=== PATIENT | male | born 1950 | race Hispanic/Latino ===

== ENCOUNTER 2021-07-30 11:33 | Inpatient (IN) | payer OTHER, MEDICARE ==
[2021-07-25 11:25] LABS: BASOPHILS % (AUTO) 0.6 % (0.0-5.0); EOSINOPHILS % (AUTO) 3.5 % (0.0-8.0); HEMATOCRIT 38.2 % (42-54); LYMPHOCYTES % (AUTO) 31.5 % (21.0-51.0); MEAN CORPUSCULAR HEMOGLOBIN 30.9 pg (27.0-33.0); MEAN CORPUSCULAR HGB CONC 32.7 g/dL (32.0-36.0); MEAN CORPUSCULAR VOLUME 94.6 fL (79-99); MONOCYTES % (AUTO) 8.7 % (3.0-13.0); NEUTROPHILS % (AUTO) 55.4 % (40.0-77.0); PLATELET COUNT (AUTO) 141 K/uL (130-400); RED BLOOD CELL COUNT(AUTO) 4.04 MIL/uL (4.50-6.20); RED CELL DISTRIBUTION WIDTH 12.7 % (11.0-15.5); WHITE BLOOD COUNT (AUTO) 6.9 K/uL (4.8-10.8)
[2021-07-25 11:36] LABS: INR 0.98 (0.85-1.15); PROTHROMBIN TIME 10.7 SEC (9.6-11.6)
[2021-07-25 11:37] LABS: PARTIAL THROMBOPLASTIN TIME 27.3 SEC (26.3-35.5)
[2021-07-25 11:44] LABS: CREATININE 6.3 mg/dL (0.5-1.5); POTASSIUM 4.4 mmol/L (3.5-5.1)
[2021-07-25 11:51] LABS: APPEARANCE,URINE Clear (CLEAR); BILIRUBIN,URINE Negative (NEGATIVE); COLOR,URINE Yellow (YELLOW); GLUCOSE, URINE (UA) >=1000 mg/dL (NEGATIVE); KETONES,URINE Trace mg/dL (NEGATIVE); LEUKOCYTE ESTERASE ,URINE Negative (NEGATIVE); NITRATE,URINE Negative (NEGATIVE); OCCULT BLOOD,URINE Small (NEGATIVE); PROTEIN,URINE POS 2+ mg/dL (NEGATIVE); UROBILINOGEN,URINE 0.2 mg/dL (0.2-1.0)
[2021-07-25 11:58] LABS: BACTERIA,URINE Rare /HPF (None Seen); RBC,URINE 0-1 /HPF (0-1); SQUAMOUS EPITHELIAL CELL,UR Rare /HPF (0-2); WBC,URINE 0-1 /HPF (0-1)
[2021-07-29 09:05] VITALS: BP 153/65
[~2021-07-30] VITALS: Ht 175.3 cm; Wt 88.0 kg
[2021-07-30] VITALS (30 sets, daily range): BP systolic 107–156; BP diastolic 54–78
[~2021-07-30 11:33] MED LIST: 0.9%NACL 1000ML 1,000 ML IV SCH; ATOR10 PO; CARV3.1262 PO; CILO100T PO; CLOP75TA14 PO; DOCU100C33 PO; FURO80TA3 PO; GABA-529 PO; INSU100I15 SQ; INSU100I24 SQ; PANT40TA54 PO; SEVE800T27 PO
[2021-07-30 12:13] LABS: CREATININE 4.8 mg/dL (0.5-1.5); POTASSIUM 4.7 mmol/L (3.5-5.1)
[2021-07-30 12:36] LABS: BASOPHILS % (AUTO) 0.2 % (0.0-5.0); EOSINOPHILS % (AUTO) 2.4 % (0.0-8.0); HEMATOCRIT 40.9 % (42-54); LYMPHOCYTES % (AUTO) 28.7 % (21.0-51.0); MEAN CORPUSCULAR HEMOGLOBIN 30.7 pg (27.0-33.0); MEAN CORPUSCULAR HGB CONC 32.3 g/dL (32.0-36.0); MEAN CORPUSCULAR VOLUME 95.1 fL (79-99); MONOCYTES % (AUTO) 8.8 % (3.0-13.0); NEUTROPHILS % (AUTO) 59.6 % (40.0-77.0); PLATELET COUNT (AUTO) 146 K/uL (130-400); RED CELL DISTRIBUTION WIDTH 12.7 % (11.0-15.5)
[2021-07-30] MEDS ORDERED: CILO50TA PO (12:54)
[2021-07-30] MEDS ORDERED: PROPOFOL 1000 MG/100 ML 100 ML IV ONE (15:01)
[2021-07-30] MEDS ORDERED: KETAMINE 50MG/ML SYRINGE 50 MG/ML DISP.SYRIN IV ONE (15:01)
[2021-07-30] MEDS ORDERED: MIDAZOLAM HCL 1 MG/ML 2ML VIAL ONE (15:02)
[2021-07-30] MEDS ORDERED: PHENYLEPHRINE HCL 10 MG/ML 1ML VIAL IV ONE (15:02)
[2021-07-30] MEDS ORDERED: FENTANYL CITRATE PF 50 MCG/1 ML 2ML VIAL ONE ×2 (15:03→16:30)
[2021-07-30] MEDS ORDERED: FAMOTIDINE 20MG VIAL IV ONE (15:07)
[2021-07-30] MEDS ORDERED: LIDOCAINE HCL 400MG/20ML VIAL ONE (15:10)
[2021-07-30] MEDS ORDERED: HEPARIN 10,000 UNIT/10ML (1,000 UNIT/ML) VIAL ONE (15:10)
[2021-07-30] MEDS ORDERED: IODIXANOL 320 MG/ML 100 ML VIAL ONE (15:10)
[2021-07-30] MEDS ORDERED: NITROGLYCERIN 50MG VIAL ONE (15:10)
[2021-07-31] VITALS (19 sets, daily range): BP systolic 110–158; BP diastolic 55–85
[2021-07-31 09:06] LABS: MEAN CORPUSCULAR HEMOGLOBIN 30.6 pg (27.0-33.0); MEAN CORPUSCULAR HGB CONC 32.1 g/dL (32.0-36.0); MEAN CORPUSCULAR VOLUME 95.6 fL (79-99); PLATELET COUNT (AUTO) 129 K/uL (130-400); RED BLOOD CELL COUNT(AUTO) 4.08 MIL/uL (4.50-6.20); RED CELL DISTRIBUTION WIDTH 12.7 % (11.0-15.5); WHITE BLOOD COUNT (AUTO) 8.7 K/uL (4.8-10.8)
[2021-07-31 09:17] LABS: CREATININE 5.3 mg/dL (0.5-1.5); PHOSPHORUS 5.1 mg/dL (2.5-4.9); POTASSIUM 4.3 mmol/L (3.5-5.1); URIC ACID 6.5 mg/dL (2.6-7.2)
[2021-07-31] MEDS: Vitamin B Complex/Vit C/Folic Acid PO SCH (09:44)
[2021-07-31 10:14] LABS: EOSINOPHILS % (MANUAL) 2 % (1-6); LYMPHOCYTES % (MANUAL) 36 % (22-44); MAN.DIFF COMMENT-IMPRESSION MANUAL DIFFERENTIAL; MONOCYTES % (MANUAL) 3 % (2-9); PLATELET MORPHOLOGY COMMENT DECREASED; SEGMENTED NEUTROPHILS % 59 % (40-70)
[2021-07-31 12:23] LABS: HEPATITIS B SURFACE ANTIGEN Non-Reactive (Negative)
[2021-07-31] MEDS ORDERED: HOME MEDICATION 1 EACH SQ PRN (12:30)
[2021-07-31] MEDS: SEVELAMER HCL 800 MG TABLET PO SCH (16:11)
[2021-07-31] MEDS: INSULIN LISPRO 100 UNIT/ML 3ML SQ SCH (16:42)
[2021-07-31] MEDS: ATORVASTATIN 10 MG TABLET PO SCH (20:31)
[2021-07-31] MEDS: DOCUSATE SODIUM 100 MG CAP PO SCH (20:31)
[2021-07-31] MEDS: GABAPENTIN 100 MG CAPSULE PO SCH (20:31)
[2021-07-31] MEDS: CLOPIDOGREL 75MG TAB PO SCH (20:32)
[2021-07-31] MEDS: CARVEDILOL 3.125 MG TABLET PO SCH (20:32)
[2021-08-01] VITALS (24 sets, daily range): BP systolic 99–147; BP diastolic 55–82
[2021-08-01 04:55] LABS: HEMATOCRIT 44.1 % (42-54); MEAN CORPUSCULAR HGB CONC 31.7 g/dL (32.0-36.0); MEAN CORPUSCULAR VOLUME 94.4 fL (79-99); RED BLOOD CELL COUNT(AUTO) 4.67 MIL/uL (4.50-6.20); RED CELL DISTRIBUTION WIDTH 12.7 % (11.0-15.5); WHITE BLOOD COUNT (AUTO) 9.7 K/uL (4.8-10.8)
[2021-08-01 05:07] LABS: CREATININE 5.8 mg/dL (0.5-1.5); MAGNESIUM 2.1 mg/dL (1.80-2.40); PHOSPHORUS 5.2 mg/dL (2.5-4.9); POTASSIUM 4.3 mmol/L (3.5-5.1)
[2021-08-01 05:18] LABS: INR 1.01 (0.85-1.15)
[2021-08-01 05:19] LABS: PARTIAL THROMBOPLASTIN TIME 28.2 SEC (26.3-35.5)
[2021-08-01] MEDS: INSULIN LISPRO 100 UNIT/ML 3ML SQ SCH ×3 (08:00→17:00)
[2021-08-01] MEDS: SEVELAMER HCL 800 MG TABLET PO SCH ×2 (08:00→17:00)
[2021-08-01] MEDS: DOCUSATE SODIUM 100 MG CAP PO SCH ×2 (09:00→23:04)
[2021-08-01] MEDS: Vitamin B Complex/Vit C/Folic Acid PO SCH (09:00)
[2021-08-01] MEDS: CARVEDILOL 3.125 MG TABLET PO SCH ×2 (09:00→23:05)
[2021-08-01] MEDS: PANTOPRAZOLE 40 MG TAB DR PO SCH (09:00)
[2021-08-01] MEDS: GABAPENTIN 100 MG CAPSULE PO SCH ×2 (09:00→23:05)
[2021-08-01] MEDS: FUROSEMIDE 80 MG TABLET PO SCH (09:00)
[2021-08-01] MEDS: CILOSTAZOL 100 MG TAB PO SCH (09:00)
[2021-08-01] MEDS ORDERED: CEFAZOLIN SODIUM 1 GM VIAL IVP PRN (16:00)
[2021-08-01] MEDS ORDERED: KETAMINE 50MG/ML SYRINGE 50 MG/ML DISP.SYRIN IV ONE (17:53)
[2021-08-01] MEDS ORDERED: CEFAZOLIN SODIUM 2 GM VIAL IV ONE (18:04)
[2021-08-01] MEDS ORDERED: MIDAZOLAM HCL 1 MG/ML 2ML VIAL ONE (18:09)
[2021-08-01] MEDS ORDERED: PROPOFOL 10 MG/ML 20ML VIAL IV ONE (18:09)
[2021-08-01] MEDS ORDERED: ROCURONIUM 10MG/1ML SYR 10 MG/ML ML ONE (18:10)
[2021-08-01] MEDS ORDERED: EPHEDRINE SULFATE 50 MG/ML AMPULE ONE (18:27)
[2021-08-01] MEDS ORDERED: PHENYLEPHRINE HCL 10 MG/ML 1ML VIAL IV ONE (18:33)
[2021-08-01] MEDS ORDERED: 0.9%NACL 10ML VIAL ONE (18:33)
[2021-08-01] MEDS ORDERED: GLYCOPYRROLATE 1 MG/5 ML SYRINGE ONE (18:46)
[2021-08-01] MEDS ORDERED: ACETAMINOPHEN 325 MG TAB PO PRN (20:00)
[2021-08-01] MEDS ORDERED: TRAMADOL HCL 50 MG TABLET PO PRN ×2 (20:00)
[2021-08-01] MEDS ORDERED: HEPARIN 10,000 UNIT/10ML (1,000 UNIT/ML) VIAL ONE (20:05)
[2021-08-01] MEDS ORDERED: NEOSTIGMINE 5MG/5ML SYR IV ONE (20:07)
[2021-08-01] MEDS ORDERED: ONDANSETRON 4MG INJ ONE (20:07)
[2021-08-01] MEDS ORDERED: PROTAMINE SULFATE 10 MG/ML 25ML VIAL IV ONE (20:09)
[2021-08-01] MEDS ORDERED: MEPERIDINE-PF 25 MG/ML SYG ONE (20:51)
[2021-08-01] MEDS ORDERED: ARTIFICAL TEARS SOL 15 ML OU PRN (22:30)
[2021-08-01] MEDS: ATORVASTATIN 10 MG TABLET PO SCH (23:05)
[2021-08-02] VITALS (19 sets, daily range): BP systolic 92–159; BP diastolic 55–86
[2021-08-02] MEDS: CEFAZOLIN SODIUM 1 GM VIAL IVP SCH ×3 (03:37→21:41)
[2021-08-02] MEDS: CLOPIDOGREL 75MG TAB PO SCH ×2 (03:38→21:43)
[2021-08-02 04:22] LABS: BASOPHILS % (AUTO) 0.3 % (0.0-5.0); EOSINOPHILS % (AUTO) 0.5 % (0.0-8.0); HEMATOCRIT 42.2 % (42-54); LYMPHOCYTES % (AUTO) 20.5 % (21.0-51.0); MEAN CORPUSCULAR HEMOGLOBIN 30.6 pg (27.0-33.0); MEAN CORPUSCULAR HGB CONC 32.2 g/dL (32.0-36.0); MONOCYTES % (AUTO) 8.8 % (3.0-13.0); NEUTROPHILS % (AUTO) 69.5 % (40.0-77.0); PLATELET COUNT (AUTO) 133 K/uL (130-400); RED BLOOD CELL COUNT(AUTO) 4.44 MIL/uL (4.50-6.20); RED CELL DISTRIBUTION WIDTH 12.6 % (11.0-15.5); WHITE BLOOD COUNT (AUTO) 13.2 K/uL (4.8-10.8)
[2021-08-02 04:54] LABS: CREATININE 7.7 mg/dL (0.5-1.5); MAGNESIUM 2.2 mg/dL (1.80-2.40); PHOSPHORUS 7.9 mg/dL (2.5-4.9); POTASSIUM 4.5 mmol/L (3.5-5.1)
[2021-08-02 05:07] LABS: HEMOGLOBIN A1C 8.6 % (4.0-6.0)
[2021-08-02] MEDS: Vitamin B Complex/Vit C/Folic Acid PO SCH (09:21)
[2021-08-02] MEDS: PANTOPRAZOLE 40 MG TAB DR PO SCH (09:21)
[2021-08-02] MEDS: DOCUSATE SODIUM 100 MG CAP PO SCH ×2 (09:21→21:41)
[2021-08-02] MEDS: SEVELAMER HCL 800 MG TABLET PO SCH ×2 (09:21→17:15)
[2021-08-02] MEDS: CARVEDILOL 3.125 MG TABLET PO SCH ×2 (09:22→21:42)
[2021-08-02] MEDS: CILOSTAZOL 100 MG TAB PO SCH (09:22)
[2021-08-02] MEDS: FUROSEMIDE 80 MG TABLET PO SCH (09:22)
[2021-08-02] MEDS: INSULIN LISPRO 100 UNIT/ML 3ML SQ SCH ×3 (09:24→17:18)
[2021-08-02] MEDS ORDERED: HYDROMORPHONE 0.5 MG SYG (0.5MG/0.5ML) IVP SCH (12:30)
[2021-08-02] MEDS ORDERED: ACETAMINOPHEN WITH CODEINE 1 TAB TAB PO PRN ×2 (12:30)
[2021-08-02] MEDS ORDERED: 0.9%NACL 1000ML 1,000 ML IV ONE (16:11)
[2021-08-02] MEDS: GABAPENTIN 300 MG CAPSULE PO SCH ×2 (16:30→17:15)
[2021-08-02] MEDS ORDERED: GLUCAGON 1MG KIT 1 MG ML IM PRN (19:00)
[2021-08-02] MEDS ORDERED: DEXTROSE 50%-WATER 50 ML DISP.SYRIN IV PRN (19:00)
[2021-08-02] MEDS: BISACODYL 5 MG TABLET.DR PO SCH ×2 (21:00→21:42)
[2021-08-02] MEDS ORDERED: CEFAZOLIN SODIUM 1 GM VIAL ONE (21:34)
[2021-08-02] MEDS: ATORVASTATIN 10 MG TABLET PO SCH (21:42)
[2021-08-02] MEDS: INSULIN HUMULIN R 100 UNIT/ML 3ML SQ SCH (21:44)
[2021-08-03 00:24] VITALS: BP 120/70
[2021-08-03 03:15] VITALS: BP_SYST 115; BP_SYST 135; BP_DIAS 69; BP_DIAS 87
[2021-08-03 04:49] LABS: BASOPHILS % (AUTO) 0.2 % (0.0-5.0); EOSINOPHILS % (AUTO) 0.5 % (0.0-8.0); HEMATOCRIT 42.9 % (42-54); LYMPHOCYTES % (AUTO) 18.2 % (21.0-51.0); MEAN CORPUSCULAR HEMOGLOBIN 30.5 pg (27.0-33.0); MEAN CORPUSCULAR HGB CONC 32.2 g/dL (32.0-36.0); MEAN CORPUSCULAR VOLUME 94.9 fL (79-99); NEUTROPHILS % (AUTO) 68.5 % (40.0-77.0); PLATELET COUNT (AUTO) 132 K/uL (130-400); RED BLOOD CELL COUNT(AUTO) 4.52 MIL/uL (4.50-6.20); RED CELL DISTRIBUTION WIDTH 12.3 % (11.0-15.5); WHITE BLOOD COUNT (AUTO) 14.2 K/uL (4.8-10.8)
[2021-08-03 05:00] LABS: CREATININE 7.7 mg/dL (0.5-1.5); POTASSIUM 4.3 mmol/L (3.5-5.1)
[2021-08-03] MEDS: INSULIN HUMULIN R 100 UNIT/ML 3ML SQ SCH ×2 (06:24→11:20)
[2021-08-03 07:00] VITALS: BP 114/71
[2021-08-03] MEDS: PANTOPRAZOLE 40 MG TAB DR PO SCH (08:24)
[2021-08-03] MEDS: Vitamin B Complex/Vit C/Folic Acid PO SCH (08:24)
[2021-08-03] MEDS: BISACODYL 5 MG TABLET.DR PO SCH (08:25)
[2021-08-03] MEDS: SEVELAMER HCL 800 MG TABLET PO SCH (08:25)
[2021-08-03] MEDS: CARVEDILOL 3.125 MG TABLET PO SCH (08:25)
[2021-08-03] MEDS: CILOSTAZOL 100 MG TAB PO SCH (08:26)
[2021-08-03] MEDS: DOCUSATE SODIUM 100 MG CAP PO SCH (08:27)
[2021-08-03] MEDS: FUROSEMIDE 80 MG TABLET PO SCH (08:27)
[2021-08-03] MEDS: INSULIN LISPRO 100 UNIT/ML 3ML SQ SCH ×2 (08:31→11:53)
[2021-08-03] MEDS ORDERED: POLYETHYLENE GLYCOL 3350 17 GM POWD.PACK PO SCH (10:00)
[2021-08-03 11:00] VITALS: BP 117/65
[2021-08-03] MEDS: GABAPENTIN 300 MG CAPSULE PO SCH (14:39)
[2021-08-03] MEDS ORDERED: AEC81 PO (15:07)
== END 2021-08-03 16:30 | disposition home or self-care (01) | DRG 252 ==
LOC: DAH 11:33 → OBSVTOIN 11:34 → DAH 11:34 → DAHIP 11:34 → 4CH 21:40 → 2AH 08-01 21:38
PROVIDERS: ADMIT Internal Medicine; ATTEND Internal Medicine
PROC: B41D1ZZ Fluoroscopy of Aorta and Bilateral Lower Extremity Arteries using Low Osmolar Contrast (ICD-10-PCS; principal; 2021-07-30)
PROC: 5A1D70Z Performance of Urinary Filtration, Intermittent, Less than 6 Hours Per Day (ICD-10-PCS; 2021-07-31)
PROC: 041K0ZL Bypass Right Femoral Artery to Popliteal Artery, Open Approach (ICD-10-PCS; 2021-08-01)
PROC: 5A1D70Z Performance of Urinary Filtration, Intermittent, Less than 6 Hours Per Day (ICD-10-PCS; 2021-08-02)
DX: E11.52 Type 2 diabetes mellitus with diabetic peripheral angiopathy with gangrene (principal); N18.6 End stage renal disease; I12.0 Hypertensive chronic kidney disease with stage 5 chronic kidney disease or end stage renal disease; N25.81 Secondary hyperparathyroidism of renal origin; Z20.822 Contact with and (suspected) exposure to COVID-19; E11.621 Type 2 diabetes mellitus with foot ulcer; L97.519 Non-pressure chronic ulcer of other part of right foot with unspecified severity; E78.5 Hyperlipidemia, unspecified; I25.10 Atherosclerotic heart disease of native coronary artery without angina pectoris; D64.9 Anemia, unspecified; E11.22 Type 2 diabetes mellitus with diabetic chronic kidney disease; E78.00 Pure hypercholesterolemia, unspecified; E87.70 Fluid overload, unspecified; Z99.2 Dependence on renal dialysis; Z95.1 Presence of aortocoronary bypass graft; Z79.899 Other long term (current) drug therapy
CPT/HCPCS: 36247; 36415; 71045; 75716; 80048; 81001; 82948; 83036; 83735; 84100; 84550; 85025; 85027; 85610; 85730; 86704; 86706; 86850; 86900; 86901; 87340; 87635; 90935; 93005; 97039; A4606; C1769; C1893; C1894; G0378; J0690; J1170; J1644; J1815; J2175; J2250; J2370; J2405; J2704; J2710; J2720; J3010; J3490; J7030; J7040; Q9967